=== PATIENT | female | born 1940 | race Caucasian/White ===

== ENCOUNTER 2016-08-16 13:49 | Emergency (ER) | payer OTHER, BC ==
[2016-06-24 15:01] VITALS: Ht 157.5 cm; Wt 42.6 kg
[~2016-08-16] VITALS: Ht 157.5 cm; Wt 42.6 kg
[~2016-08-16 13:49] MED LIST: ALBU2.5V7 INH; AMOX-426 PO; ATRMDI INH; AZIT500T10 PO; AZIT500T2 PO; FLUC200T38 PO; FLUT1DIS INH; GABA-529 PO; IPRA0.2S6 INH; LEVO500T20 PO; NYSSUS PO; PRED10TA PO; PRED20TA PO; UMEC1BLS IH; VALS160T2 PO
--- NOTE | 2016-08-16 13:50 | NUR ---
Placed in room 01 . Placed on front desk monitor, blood pressure machine and pulse oximeter. To gown for exam. Side rails up. Report given to Casie .
[2016-08-16 13:54] VITALS: BP 187/81; PULSE 86; RESP 18; TEMP 97.1; O2SAT 96
--- NOTE | 2016-08-16 14:00 | NUR ---
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 States that problem has been getting worse recently. Patient is able to complete sentences without trouble but breathing appears labored. Also states that she was recently completed a [employer] for persitent productive cough. Non-productive cough noted at this time. No other complaints/injuries per patient or noted.
--- NOTE | 2016-08-16 14:05 | NUR ---
Dr. Kinsey at bedside
--- NOTE | 2016-08-16 14:08 | NUR ---
Dr. Kinsey aware of high blood pressure
[2016-08-16 14:12] LABS: BASOPHILS # (AUTO) 0.4 K/uL (0.0-0.2); BASOPHILS % (AUTO) 3.2 % (0.0-2.0); EOSINOPHILS % (AUTO) 0.1 % (0.0-4.0); HEMATOCRIT 41.1 % (36-48); HEMOGLOBIN 13.6 g/dL (12.0-16.0); LYMPHOCYTES # (AUTO) 1.4 K/uL (1.0-5.5); LYMPHOCYTES % (AUTO) 10.3 % (20.5-51.5); MEAN CORPUSCULAR HEMOGLOBIN 30 pg (27-31); MEAN CORPUSCULAR HGB CONC 33 % (32-36); MEAN CORPUSCULAR VOLUME 90 fL (79.0-98.0); MONOCYTES # (AUTO) 0.3 K/uL (0.0-1.0); MONOCYTES % (AUTO) 2.1 % (1.7-9.3); NEUTROPHILS # (AUTO) 11.2 K/uL (1.8-7.7); NEUTROPHILS % (AUTO) 84.3 % (40.0-70.0); PLATELET COUNT (AUTO) 340 K/uL (130-430); RED BLOOD CELL COUNT(AUTO) 4.56 MIL/uL (4.2-6.2); RED CELL DISTRIBUTION WIDTH 14.9 % (9.0-15.0); WHITE BLOOD COUNT (AUTO) 13.3 K/uL (4.8-10.8)
--- NOTE | 2016-08-16 14:50 | NUR ---
Patient resting in bed, speaking with . States does not feel short of breath at this time.
[2016-08-16 14:54] LABS: ANION GAP 4 (5-15); CALCIUM 9.9 mg/dL (8.4-11.0); CHLORIDE 105 mmol/L (98-107); CREATININE 0.77 mg/dL (0.55-1.30); GLUCOSE 119 mg/dL (70-99); SODIUM SERUM 140 mmol/L (136-145); UREA NITROGEN, BLOOD 23 mg/dL (8-21)
[2016-08-16 14:56] LABS: ALANINE AMINOTRANSFERASE 25 U/L (12-78); ALBUMIN 3.9 g/dL (3.4-4.8); ASPARTATE AMINOTRANSFERASE 16 U/L (10-37); CHOLESTEROL 303 mg/dL (<200); CREATINE KINASE, TOTAL 34 U/L (26-192); HDL CHOLESTEROL 140 mg/dL (>55); LDL CHOLESTEROL 123 mg/dL (<100); TOTAL BILIRUBIN 0.4 mg/dL (0.0-1.0); TOTAL PROTEIN, SERUM 6.9 g/dL (6.4-8.3); TRIGLYCERIDES 51 mg/dL (30-150)
--- NOTE | 2016-08-16 15:30 | NUR ---
Patient wishes to not be admitted and go home. Dr. Kinsey spoke with patient about risks and to return to ER for any new, returning or worsening symptoms. patient and verbalized understanding. No shortness of breath per patient or noted.
[2016-08-16 15:57] VITALS: BP 138/86; PULSE 72; RESP 18; TEMP 97.6; O2SAT 99
--- NOTE | 2016-08-16 15:57 | NUR ---
Patient given written and verbal discharge instructions and verbalizes understanding. ER MD discussed with patient the results and treatment provided. Patient in stable condition. ID arm band removed. IV catheter removed intact and dressing applied, no active bleeding. Patient educated on pain management and to follow up with PMD in 2 days. Pain Scale 0/10. Opportunity for questions provided and answered.
== END 2016-08-16 15:57 | disposition home or self-care (01) ==
LOC: SED 13:49
DX: J44.1 Chronic obstructive pulmonary disease with (acute) exacerbation (principal); I10 Essential (primary) hypertension; Z85.528 Personal history of other malignant neoplasm of kidney; Z88.1 Allergy status to other antibiotic agents; Z79.899 Other long term (current) drug therapy
CPT/HCPCS: 36415; 71010; 80053; 80061; 82550-TC; 83880; 84484; 85025; 85610-TC; 85730-TC; 93005; 99285

== ENCOUNTER 2017-01-10 16:35 | Inpatient (IN) | payer OTHER, BC ==
[~2017-01-10] VITALS: Ht 157.5 cm; Wt 41.7 kg
[~2017-01-10 16:35] MED LIST changes: -AZIT500T10 PO; -NYSSUS PO
[2017-01-10] MEDS ORDERED: IPRATROPIUM BROM 0.5 MG/2.5 ML VIAL.NEB (ATROVENT) INH PRN (17:45)
[2017-01-10] MEDS ORDERED: ALBUTEROL SULFATE 0.083% 2.5 MG/3 ML VIAL.NEB INH PRN (17:45)
[2017-01-10 17:51] VITALS: BP_SYST 124
[2017-01-10 18:31] LABS: BASOPHILS # (AUTO) 0.1 K/uL (0.0-0.2); BASOPHILS % (AUTO) 0.8 % (0.0-2.0); EOSINOPHILS # (AUTO) 0.1 K/uL (0.0-0.4); HEMATOCRIT 38.9 % (36-48); HEMOGLOBIN 12.8 g/dL (12.0-16.0); LYMPHOCYTES # (AUTO) 1.3 K/uL (1.0-5.5); LYMPHOCYTES % (AUTO) 17.7 % (20.5-51.5); MEAN CORPUSCULAR HEMOGLOBIN 29 pg (27-31); MEAN CORPUSCULAR HGB CONC 33 % (32-36); MEAN CORPUSCULAR VOLUME 89 fL (79.0-98.0); MONOCYTES # (AUTO) 0.5 K/uL (0.0-1.0); MONOCYTES % (AUTO) 6.5 % (1.7-9.3); NEUTROPHILS # (AUTO) 5.3 K/uL (1.8-7.7); PLATELET COUNT (AUTO) 312 K/uL (130-430); RED BLOOD CELL COUNT(AUTO) 4.36 MIL/uL (4.2-6.2); RED CELL DISTRIBUTION WIDTH 14.2 % (9.0-15.0); WHITE BLOOD COUNT (AUTO) 7.3 K/uL (4.8-10.8)
[2017-01-10 18:41] LABS: ANION GAP 3 (5-15); CALCIUM 9.4 mg/dL (8.4-11.0); CHLORIDE 102 mmol/L (98-107); CREATININE 0.71 mg/dL (0.55-1.30); GLUCOSE 95 mg/dL (70-99); POTASSIUM 4.3 mmol/L (3.5-5.1); SODIUM SERUM 136 mmol/L (136-145); UREA NITROGEN, BLOOD 17 mg/dL (8-21)
[2017-01-10 18:45] LABS: ALANINE AMINOTRANSFERASE 19 U/L (12-78); ALBUMIN 3.8 g/dL (3.4-4.8); ASPARTATE AMINOTRANSFERASE 18 U/L (10-37); TOTAL BILIRUBIN 0.5 mg/dL (0.0-1.0); TOTAL PROTEIN, SERUM 7.5 g/dL (6.4-8.3)
[2017-01-10] MEDS ORDERED: methylPREDNISolone SOD SUCC/PF 62.5 MG/ML VIAL IVP ONE (18:45)
[2017-01-10] MEDS: ALBUTEROL SULFATE 0.083% 2.5 MG/3 ML VIAL.NEB INH SCH ×2 (19:00→23:00)
[2017-01-10] MEDS: IPRATROPIUM BROM 0.5 MG/2.5 ML VIAL.NEB (ATROVENT) INH SCH ×2 (19:47→23:00)
[2017-01-10 20:00] VITALS: BP_SYST 120
[2017-01-10] MEDS: cefTRIAXone 1 GM IVPB PREMIX 50 ML IV SCH (20:00)
[2017-01-10] MEDS ORDERED: FLUTICASONE 100 mCg/SALMETEROL 50 mCg DISKUS W.DEV INH SCH (21:00)
[2017-01-10] MEDS: AZITHROMYCIN 500 MG in NS 250 ML IV SCH (21:18)
[2017-01-10] MEDS: GABAPENTIN 100 MG CAPSULE PO SCH (21:19)
[2017-01-10] MEDS: methylPREDNISolone SOD SUCC/PF 62.5 MG/ML VIAL IVP SCH (22:00)
[2017-01-10 22:27] VITALS: BP_SYST 120
[2017-01-11] VITALS: BP_SYST 132
[2017-01-11] MEDS: ALBUTEROL SULFATE 0.083% 2.5 MG/3 ML VIAL.NEB INH SCH ×2 (02:25→07:00)
[2017-01-11] MEDS: IPRATROPIUM BROM 0.5 MG/2.5 ML VIAL.NEB (ATROVENT) INH SCH ×6 (02:25→23:00)
[2017-01-11 04:00] VITALS: BP_SYST 108
[2017-01-11] MEDS: methylPREDNISolone SOD SUCC/PF 62.5 MG/ML VIAL IVP SCH ×3 (06:59→21:03)
[2017-01-11] MEDS: FLUTICASONE/VILANTEROL 1 EACH BLST.W.DEV INH SCH (09:23)
[2017-01-11] MEDS: VALSARTAN 160 MG TABLET (DIOVAN) PO SCH (09:23)
[2017-01-11] MEDS ORDERED: LevALBUTEROL HCL 1.25 MG/0.5 ML *CONC.* VIAL.NEB (XOPENEX CONC.) INH PRN (10:45)
[2017-01-11 12:06] VITALS: BP_SYST 108
[2017-01-11 16:37] VITALS: BP_SYST 113
[2017-01-11] MEDS: AZITHROMYCIN 500 MG in NS 250 ML IV SCH (17:46)
[2017-01-11] MEDS: cefTRIAXone 1 GM IVPB PREMIX 50 ML IV SCH (17:47)
[2017-01-11 20:00] VITALS: BP_SYST 130
[2017-01-11] MEDS: GABAPENTIN 100 MG CAPSULE PO SCH (21:03)
[2017-01-11] MEDS: FLUCONAZOLE 100 MG TABLET (DIFLUCAN) PO SCH (21:45)
[2017-01-12] VITALS (7 sets, daily range): BP systolic 115–136
[2017-01-12] MEDS: methylPREDNISolone SOD SUCC/PF 62.5 MG/ML VIAL IVP SCH (05:23)
[2017-01-12] MEDS: FLUTICASONE/VILANTEROL 1 EACH BLST.W.DEV INH SCH ×2 (09:00→09:18)
[2017-01-12] MEDS: VALSARTAN 160 MG TABLET (DIOVAN) PO SCH (09:18)
[2017-01-12] MEDS: FLUCONAZOLE 100 MG TABLET (DIFLUCAN) PO SCH (09:20)
[2017-01-12] MEDS: IPRATROPIUM BROM 0.5 MG/2.5 ML VIAL.NEB (ATROVENT) INH SCH ×5 (14:15→23:00)
[2017-01-12] MEDS: cefTRIAXone 1 GM IVPB PREMIX 50 ML IV SCH (17:12)
[2017-01-12] MEDS: AZITHROMYCIN 500 MG in NS 250 ML IV SCH (18:46)
[2017-01-12] MEDS ORDERED: methylPREDNISolone SOD SUCC 40 MG/ML VIAL IVP SCH (21:00)
[2017-01-12] MEDS: GABAPENTIN 100 MG CAPSULE PO SCH (21:05)
[2017-01-13 00:54] VITALS: BP_SYST 125
[2017-01-13] MEDS: IPRATROPIUM BROM 0.5 MG/2.5 ML VIAL.NEB (ATROVENT) INH SCH ×3 (02:30→11:33)
[2017-01-13 06:01] VITALS: BP_SYST 137
[2017-01-13 08:00] VITALS: BP_SYST 134
[2017-01-13] MEDS: VALSARTAN 160 MG TABLET (DIOVAN) PO SCH (08:57)
[2017-01-13] MEDS: FLUCONAZOLE 100 MG TABLET (DIFLUCAN) PO SCH (08:57)
[2017-01-13] MEDS: FLUTICASONE/VILANTEROL 1 EACH BLST.W.DEV INH SCH (08:58)
[2017-01-13 12:00] VITALS: BP_SYST 153
[2017-01-13 12:53] VITALS: BP_SYST 134
== END 2017-01-13 13:30 | disposition home or self-care (01) | DRG 191 ==
LOC: SMU 16:35 → STU 16:55
PROVIDERS: ADMIT Internal Medicine Hospice and Palliative Medicine; ATTEND Internal Medicine Hospice and Palliative Medicine
DX: J44.1 Chronic obstructive pulmonary disease with (acute) exacerbation (principal); Z68.1 Body mass index [BMI] 19.9 or less, adult; I10 Essential (primary) hypertension; F17.200 Nicotine dependence, unspecified, uncomplicated; Z90.5 Acquired absence of kidney; Z85.528 Personal history of other malignant neoplasm of kidney; Z88.1 Allergy status to other antibiotic agents
CPT/HCPCS: 36415; 71010; 80053; 85025; 94640; 94760; J0456; J0696; J1030; J2930; J7050

== ENCOUNTER 2018-07-14 08:43 | Emergency (ER) | payer OTHER, BC ==
[~2018-07-14] VITALS: Ht 157.5 cm; Wt 39.9 kg
[~2018-07-14 08:43] MED LIST changes: -AMOX-426 PO; +FLUC200T PO; -FLUC200T38 PO
[2018-07-14 08:53] VITALS: BP_SYST 122
[2018-07-14 09:40] VITALS: BP_SYST 122
== END 2018-07-14 09:40 | disposition home or self-care (01) ==
LOC: SED 08:43
DX: S80.01XA Contusion of right knee, initial encounter (principal); J44.9 Chronic obstructive pulmonary disease, unspecified; I10 Essential (primary) hypertension; Z85.528 Personal history of other malignant neoplasm of kidney; Z88.1 Allergy status to other antibiotic agents; Z79.899 Other long term (current) drug therapy; W19.XXXA Unspecified fall, initial encounter; Y93.89 Activity, other specified; Y92.89 Other specified places as the place of occurrence of the external cause; Y99.8 Other external cause status
CPT/HCPCS: 73564; 99283

== ENCOUNTER 2018-12-13 12:20 | Inpatient (IN) | payer OTHER, BC ==
[~2018-12-13] VITALS: Ht 157.5 cm; Wt 38.6 kg
[2018-12-13 12:20] VITALS: BP_SYST 158
[2018-12-13 13:38] LABS: BASOPHILS % (AUTO) 0.1 % (0.0-2.0); HEMATOCRIT 36.4 % (36-48); LYMPHOCYTES # (AUTO) 0.4 K/uL (1.0-5.5); MEAN CORPUSCULAR HEMOGLOBIN 28 pg (27-31); MEAN CORPUSCULAR HGB CONC 33 % (32-36); MEAN CORPUSCULAR VOLUME 85 fL (79.0-98.0); MONOCYTES # (AUTO) 0.1 K/uL (0.0-1.0); MONOCYTES % (AUTO) 0.8 % (1.7-9.3); NEUTROPHILS # (AUTO) 8.7 K/uL (1.8-7.7); NEUTROPHILS % (AUTO) 95.1 % (40.0-70.0); PLATELET COUNT (AUTO) 614 K/uL (130-430); RED BLOOD CELL COUNT(AUTO) 4.31 MIL/uL (4.2-6.2); RED CELL DISTRIBUTION WIDTH 15.7 % (9.0-15.0); WHITE BLOOD COUNT (AUTO) 9.1 K/uL (4.8-10.8)
[2018-12-13 13:52] LABS: ANION GAP 7 (5-15); CALCIUM 10.1 mg/dL (8.4-11.0); CHLORIDE 96 mmol/L (98-107); CREATININE 0.75 mg/dL (0.55-1.30); GLUCOSE 137 mg/dL (70-99); POTASSIUM 4.7 mmol/L (3.5-5.1); SODIUM SERUM 130 mmol/L (136-145); UREA NITROGEN, BLOOD 20 mg/dL (8-21)
[2018-12-13 13:58] LABS: PROTHROMBIN TIME 10.6 SECS (9.5-12.5)
[2018-12-13 13:59] LABS: ALANINE AMINOTRANSFERASE 23 U/L (12-78); ALBUMIN 3.2 g/dL (3.4-4.8); ASPARTATE AMINOTRANSFERASE 16 U/L (10-37); TOTAL BILIRUBIN 0.3 mg/dL (0.0-1.0)
[2018-12-13] MEDS ORDERED: ACET325T53 PO (15:12)
[2018-12-13] MEDS ORDERED: ASM110 INH (15:12)
[2018-12-13] MEDS ORDERED: UMEC1BLS IH (15:12)
[2018-12-13 15:46] LABS: BILIRUBIN,URINE NEGATIVE (NEGATIVE); CLARITY/URINE CLEAR (CLEAR); COLOR,URINE YELLOW (YELLOW); GLUCOSE,URINE NEGATIVE (NEGATIVE); KETONES,URINE NEGATIVE (NEGATIVE); LEUKOCYTE ESTERASE ,URINE NEGATIVE (NEGATIVE); NITRITE, URINE NEGATIVE (NEGATIVE); PH,URINE 6.5 (5.0-8.0); PROTEIN URINE 1+ (NEGATIVE); UROBILINOGEN,URINE 0.2 (0.2-1.0)
[2018-12-13 15:48] LABS: BLOOD, URINE TRACE (NEGATIVE)
[2018-12-13] MEDS ORDERED: cloNIDine HCL 0.1 MG TABLET PO PRN (16:00)
[2018-12-13] MEDS ORDERED: ENALAPRILAT DIHYDRATE 1.25 MG/ML VIAL IVP PRN (16:00)
[2018-12-13] MEDS ORDERED: ALBUTEROL SULFATE 0.083% 2.5 MG/3 ML VIAL.NEB INH PRN (16:00)
[2018-12-13] MEDS ORDERED: hydrALAZINE HCL 20 MG/ML VIAL IVP PRN (16:00)
[2018-12-13] MEDS ORDERED: IPRATROPIUM BROM 0.5 MG/2.5 ML VIAL.NEB (ATROVENT) INH PRN (16:00)
[2018-12-13] MEDS ORDERED: ASPIRIN 325 MG TABLET (ECOTRIN) PO ONE (16:00)
[2018-12-13 17:13] LABS: BACTERIA,URINE FEW /HPF (None Seen); MUCUS,URINE None Seen /LPF (None Seen); RBC,URINE 0-3 /HPF (0-3); WBC,URINE 0-3 /HPF (0-3)
[2018-12-13 17:50] VITALS: BP_SYST 152
[2018-12-13] MEDS: ALBUTEROL SULFATE 0.083% 2.5 MG/3 ML VIAL.NEB INH SCH ×2 (19:00→23:00)
[2018-12-13 19:05] VITALS: BP_SYST 149
[2018-12-13] MEDS: IPRATROPIUM BROM 0.5 MG/2.5 ML VIAL.NEB (ATROVENT) INH SCH ×2 (19:16→23:00)
[2018-12-13] MEDS ORDERED: GABAPENTIN 100 MG CAPSULE PO SCH (21:00)
[2018-12-14 00:03] VITALS: BP_SYST 143
[2018-12-14] MEDS: ALBUTEROL SULFATE 0.083% 2.5 MG/3 ML VIAL.NEB INH SCH ×3 (02:40→11:00)
[2018-12-14] MEDS: IPRATROPIUM BROM 0.5 MG/2.5 ML VIAL.NEB (ATROVENT) INH SCH ×3 (02:40→11:24)
[2018-12-14 08:15] VITALS: BP_SYST 146
[2018-12-14] MEDS ORDERED: ASPIRIN 325 MG TABLET (ECOTRIN) PO SCH (09:00)
[2018-12-14] MEDS ORDERED: VALSARTAN 160 MG TABLET (DIOVAN) PO SCH (09:00)
[2018-12-14 12:35] VITALS: BP_SYST 135
[2018-12-14 12:47] VITALS: BP_SYST 135
== END 2018-12-14 13:10 | disposition home or self-care (01) | DRG 74 ==
LOC: SED 12:20 → STU 14:57
PROVIDERS: ADMIT Internal Medicine Hospice and Palliative Medicine; ATTEND Internal Medicine Hospice and Palliative Medicine
DX: G90.8 Other disorders of autonomic nervous system (principal); E87.1 Hypo-osmolality and hyponatremia; R42 Dizziness and giddiness; I10 Essential (primary) hypertension; J44.9 Chronic obstructive pulmonary disease, unspecified; Z85.528 Personal history of other malignant neoplasm of kidney; Z87.891 Personal history of nicotine dependence; Z90.5 Acquired absence of kidney; Z88.1 Allergy status to other antibiotic agents; Z79.2 Long term (current) use of antibiotics; Z79.899 Other long term (current) drug therapy
CPT/HCPCS: 36415; 70450-TC; 71045; 80053; 81000-TC; 83880; 84484; 85025; 85610-TC; 85730-TC; 93005; 94640; 99285; G0378; J7613

== ENCOUNTER 2018-12-29 16:08 | Outpatient (CLI) | payer OTHER, BC ==
[~2018-12-29 16:08] MED LIST changes: +ACET325T53 PO; -ALBU2.5V7 INH; +ASM110 INH; -ATRMDI INH; -AZIT500T2 PO; -FLUC200T PO; -FLUT1DIS INH; -IPRA0.2S6 INH; -LEVO500T20 PO; -PRED10TA PO; -PRED20TA PO
== END 2018-12-29 19:27 | disposition home or self-care (01) ==
LOC: SRD 16:08
PROVIDERS: ATTEND Specialist
DX: J44.9 Chronic obstructive pulmonary disease, unspecified (principal)
CPT/HCPCS: 71046-TC

== ENCOUNTER 2019-01-02 10:20 | Outpatient (CLI) | payer OTHER, BC | END 2019-01-02 20:22 | disposition home or self-care (01) | LOC: SCT 10:20 | PROVIDERS: ATTEND Specialist | DX: R91.8 Other nonspecific abnormal finding of lung field (principal); J44.9 Chronic obstructive pulmonary disease, unspecified | CPT/HCPCS: 71250-TC ==